=== PATIENT | female | born 1975 | race Two or more races ===

== ENCOUNTER 2016-12-07 08:17 | Day surgery (SDC) | payer OTHER ==
[2016-12-07] MEDS ORDERED: Sodium Chloride 0.9% 1,000 ML IV SCH (09:00)
[2016-12-07] MEDS ORDERED: Midazolam 1 MG/ML 2 ML SDV ONE (09:13)
[2016-12-07] MEDS ORDERED: Propofol 200 MG/20 ML SDV ONE (09:13)
[2016-12-07] MEDS ORDERED: fentaNYL 100 MCG/2 ML SDV ONE (09:13)
--- NOTE | 2016-12-08 09:05 | OR ---
DATE OF PROCEDURE: 12/07/2016 PROCEDURE: 1. Esophagogastroduodenoscopy. 2. Colonoscopy. FINDINGS: Normal EGD/colonoscopy. COMPLICATIONS: None. DRIVER/MERCHANDISER: None PREOPERATIVE DIAGNOSIS: Diarrhea. POSTOPERATIVE DIAGNOSIS: Diarrhea. RISKS: Risks, benefits, alternatives, and limitations, including, but not limited to infection, bleeding, and perforation were explained and the patient, who wished to proceed. PROCEDURE IN DETAIL: The patient was placed in left lateral decubitus position. The EGD scope was introduced atraumatically to the second part of the duodenum. No old or new blood. No ulcerations. No abnormalities. The GE junction was also normal. Digital rectal exam was performed next. The scope was introduced and advanced atraumatically to the ileocecal valve. The scope was brought back to the ascending, transverse, descending colon, and retroflexed. No evidence of inflammation or any abnormality. No targets for biopsy. No evidence of colitis. No evidence of irritable or inflammatory bowel disease. No abnormalities on retroflexion. The patient tolerated the procedure well. Pancho Ortiz MD /[id number]
== END 2016-12-07 11:49 | disposition home or self-care (01) ==
LOC: JP.SDS 08:17
PROVIDERS: ATTEND Surgery
DX: R19.7 Diarrhea, unspecified (principal); F41.8 Other specified anxiety disorders; J45.909 Unspecified asthma, uncomplicated; E03.9 Hypothyroidism, unspecified; Z88.1 Allergy status to other antibiotic agents; Z88.2 Allergy status to sulfonamides; Z88.8 Allergy status to other drugs, medicaments and biological substances; Z91.09 Other allergy status, other than to drugs and biological substances
CPT/HCPCS: 43235; 45378; J2250; J2704; J3010; J7040